=== PATIENT | female | born 1985 | race Caucasian/White ===

== ENCOUNTER 2018-03-01 07:29 | Emergency (ER) | payer SELFPAY ==
[~2018-03-01] VITALS: Ht 162.6 cm; Wt 61.4 kg
[~2018-03-01 07:29] MED LIST: AMOX-426 PO
[2018-03-01] MEDS ORDERED: NAPR220T57 PO (07:41)
[2018-03-01 09:11] VITALS: BP 181/123
[2018-03-01] MEDS ORDERED: KETOROLAC TROMETHAMINE 60 MG/2 ML VIAL IM ONE (09:15)
[2018-03-01] MEDS ORDERED: CYCLOBENZAPRINE HCL 10 MG TABLET PO ONE (09:15)
[2018-03-01] MEDS ORDERED: ACETAMINOPHEN 500 MG TABLET PO ONE (09:15)
== END 2018-03-01 09:48 | disposition left against medical advice (07) ==
LOC: EMS 07:30
DX: M54.2 Cervicalgia (principal); I10 Essential (primary) hypertension; F41.9 Anxiety disorder, unspecified; F17.210 Nicotine dependence, cigarettes, uncomplicated; Z91.14 Patient's other noncompliance with medication regimen
CPT/HCPCS: 93005; 99283; J1885